=== PATIENT | female | born 1990 | race Caucasian/White ===

== ENCOUNTER 2018-08-20 16:34 | Inpatient (IN) ==
[2018-08-20] MEDS ORDERED: RINGER'S SOLUTION,LACTATED 1,000 ML IV PRN (18:08)
[2018-08-20] MEDS ORDERED: OXYTOCIN/DEXTROSE 5%-WATER 30 UNITS/500 ML BAG IV ONE (18:08)
[2018-08-20] MEDS ORDERED: ALBUTEROL SULFATE 200 PUFF INHALER IH PRN (19:26)
--- NOTE | 2018-08-20 19:26 | HP ---
Chief Complaint - Chief Complaint Date of Service: 08/20/18 Time of Service: 19:16 Chief Complaint: induction of labor for post dates History of Present Illness: 28 yo at 40 1/7 weeks presents to L&D for induction of labor. This complicated by asthma. Rh positive Rubella immune GBS negative Medical History (Last Reviewed 08/20/18 @ 19:22 by Hudson Mason DO) Asthma Onset Date: 1991 No hospitalizations. Daily Pulmicort. Pt has a rescue inhaler- can't remember the last time she had to use it. 01/15/18 jirn Hx of wisdom tooth extraction Onset Date: Unknown Upper 2 Family History: Family History (Last Reviewed 08/20/18 @ 19:22 by Hudson Mason DO) Father Rheumatoid arthritis Mother Congenital omphalocele Grandfather Asthma Grandmother Thyroid disease Maternal Grandfather Myocardial infarction, Onset Age: 32 Paternal Social History: Preferred Language Slovenian Smoking Status Never smoker (Last Updated 08/20/18 @ 16:03 by Hudson Mason DO) No Social History Section defined Review Of Systems (GEN) - Review of Systems Generalized/Overall Review: Present: No Symptoms Reported EENTM: Present: No Symptoms Reported Respiratory: Present: No Symptoms Reported Cardiac: Present: No Symptoms Reported Abdominal: Present: Other - mild contractions Genitourinary: Present: No Symptoms Reported Musculoskeletal: Present: No Symptoms Reported Neurological: Present: No Symptoms Reported Skin: Present: No Symptoms Reported Endocrine: Present: No Symptoms Reported Allergies/Adverse Reactions: Allergies Allergy/AdvReac Type Severity Reaction Status Date / Time animal dander Allergy wheezing Verified 08/20/18 18:23 No Known Drug Allergies Allergy Verified 08/20/18 18:23 Home Medications: HOME MEDICATIONS albuterol sulfate HFA 90 mcg/actuation aerosol inhaler 2 puff IH Q6H PRN 01/15/18 [Last Taken Unknown] budesonide 90 mcg/actuation breath activated powder inhaler 1 inh IH Q12H 01/15/18 [Last Taken 08/20/18] cetirizine 10 mg capsule 10 mg PO DAILY 01/15/18 [Last Taken 08/20/18] vitamin,calcium,tpdakvcb-wvbm-epxex acid tablet 1 tab PO DAILY 01/15/18 [Last Taken 08/20/18] calcium carbonate 600 mg calcium (1,500 mg) tablet 600 mg PO DAILY tab 02/12/18 [Last Taken Unknown] Exam - Exam Constitutional: Present: Alert, Oriented x3, Cooperative, No distress ENT Exam: Present: hearing grossly normal Breasts: Present: Exam deferred Respiratory: Present: lungs clear, no respiratory distress Cardiovascular/Chest: Present: normal peripheral pulses, regular rate, rhythm, no edema Abdomen: Present: soft, nontender, nondistended, no rebound tenderness, other - gravid /Rectal: Present: Other - cervix 3/60/-3 Extremity: Present: no pedal edema, no calf tenderness Skin Exam: Present: normal color, warm/dry, no cyanosis Neurologic: Present: alert, normal mood/affect, oriented x 3 Appearance: Present: appropriate appearance, appropriate insight Eye contact: Present: cooperative, good eye contact Thoughts: Present: normal thought pattern Diagnostic Studies: NST reactive. FHT 125 bpm. Contractions q 5-6 min Assessment/Plan - Assessment/Plan (1) Post-dates Assessment: Admit for pitocin induction of labor. Epidural PRN. Problem: Acute Qualifiers: Post-term type: 40-42 weeks gestation Qualified Code(s): O48.0 - Post-term (2) Asthma Problem: Acute Qualifiers: Asthma severity: moderate Asthma complication type: uncomplicated
[2018-08-20 19:55] LABS: Cocaine Ur Negative (NEGATIVE); Urine Barbiturate Negative (NEGATIVE); Urine Benzodiazepines Negative (NEGATIVE); Urine Opiates Negative (NEGATIVE); Urine PCP Negative (NEGATIVE); Urine THC Negative (NEGATIVE)
[2018-08-20] MEDS: BUDESONIDE IH SCH (20:50)
[2018-08-20] MEDS ORDERED: CALCIUM CARBONATE 500 MG TAB.CHEW PO PRN (23:05)
[2018-08-21] MEDS: RINGER'S SOLUTION,LACTATED 1,000 ML IV ONE ×2 (03:55→08:23)
[2018-08-21] MEDS ORDERED: BUPIVACAINE HCL/0.9 % NACL/PF 250 ML EP PRN ×2 (03:58→07:00)
[2018-08-21] MEDS ORDERED: ONDANSETRON HCL/PF 2 MG/ML VIAL IV PRN (03:58)
[2018-08-21] MEDS ORDERED: NALOXONE HCL 1 MG/1 ML SYRG IV PRN ×2 (03:58→07:00)
[2018-08-21] MEDS ORDERED: ONDANSETRON 4 MG TAB.RAPDIS PO PRN (03:59)
[2018-08-21] MEDS ORDERED: BUPIVACAINE HCL/PF 30 ML VIAL EP SCH (04:00)
[2018-08-21] MEDS ORDERED: BUTORPHANOL TARTRATE 2 MG/ML VIAL IV PRN (04:16)
[2018-08-21] MEDS ORDERED: ALBUTEROL SULFATE 2.5 MG/0.5 ML VIAL.NEB IH PRN (06:20)
[2018-08-21] MEDS ORDERED: fentaNYL CITRATE/PF 50 MCG/ML AMPUL IT SCH (07:00)
--- NOTE | 2018-08-21 07:02 | ANES ---
Anesthesia Pre Procedure Eval Vitals/Labs: Last Vital Signs Temp 36.8 C 08/21/18 04:06 Pulse 94 08/21/18 04:06 Resp 18 08/21/18 04:06 BP 127/71 08/21/18 04:06 Pulse Ox 99 08/21/18 04:06 HOME MEDICATIONS albuterol sulfate HFA 90 mcg/actuation aerosol inhaler 2 puff IH Q6H PRN 01/15/18 [Last Taken Unknown] budesonide 90 mcg/actuation breath activated powder inhaler 1 inh IH Q12H 01/15/18 [Last Taken 08/20/18] cetirizine 10 mg capsule 10 mg PO DAILY 01/15/18 [Last Taken 08/20/18] vitamin,calcium,hvuiwpxw-lsfo-nruhi acid tablet 1 tab PO DAILY 01/15/18 [Last Taken 08/20/18] calcium carbonate 600 mg calcium (1,500 mg) tablet 600 mg PO DAILY tab 02/12/18 [Last Taken Unknown] Allergies/Adverse Reactions: Allergies Allergy/AdvReac Type Severity Reaction Status Date / Time animal dander Allergy wheezing Verified 08/20/18 18:23 No Known Drug Allergies Allergy Verified 08/20/18 18:23 - Planned Procedure Planned Procedure: MEDICAL INDUCTION FOR POST DATES Medication List Reviewed:: Yes Allergies Verified: Yes Medical History (Last Reviewed 08/21/18 @ 07:01 by Matteo Rebollar CRNA) Asthma Onset Date: 1991 No hospitalizations. Daily Pulmicort. Pt has a rescue inhaler- can't remember the last time she had to use it. 01/15/18 jirn Hx of wisdom tooth extraction Onset Date: Upper 2 Family History (Last Reviewed 08/21/18 @ 07:01 by Matteo Rebollar CRNA) Father Rheumatoid arthritis Mother Congenital omphalocele Grandfather Asthma Grandmother Thyroid disease Maternal Grandfather Myocardial infarction, Onset Age: 32 Paternal - Family Anesthesia History Family History:: no untoward family reactions to anesthesia, no familial bleeding tendencies, no family history of clotting disorders, no family history of premature - Airway/Neck/Teeth Within Normal Limits:: Yes Teeth Condition: intact Neck Exam: full range of motion Mallampatti Score: 2 Thyromental (T-M) distance: > 6 cm Mandibulo Hyoid distance: > 3 cm - Respiratory Respiratory History: asthma Respiratory Physical: lungs clear Sleep Apnea currently treated: No Sleep Apnea by current assessment: No - Cardiovascular Tolerate Activity: Fair Heart Sounds: S1 & S2, Regular - Anesthesia Assessment and Plan ASA Class: PS, II, E Anesthesia Type Plan: Epidural - CSE for labor analgesia
[2018-08-21] MEDS ORDERED: LIDOCAINE HCL/EPINEPHRINE 20 ML VIAL ONE (07:09)
[2018-08-21] MEDS ORDERED: fentaNYL CITRATE/PF 50 MCG/ML AMPUL ONE (07:10)
[2018-08-21] MEDS: ONDANSETRON HCL/PF 2 MG/ML VIAL IV PRN ×2 (07:15→15:11)
--- NOTE | 2018-08-21 07:24 | ANES ---
Post Anesthesia Discharge - Transfer of Care Transfer of Care handoff given to nurse: Yes - Discharge from PACU Discharge from PACU when meets criteria: Yes - Comfortable post CSE
--- NOTE | 2018-08-21 07:25 | ANES ---
Anesthesia Procedure Note Procedure Note: ANESTHESIA PROCEDURE NOTE Date of Procedure: 08/21/2018 Time of procedure: 7:05 AM. Performed by: Matteo Rebollar CRNA, MSN Mother Baby Rn: Diane Leong RN. Preprocedure diagnosis: Active labor, labor pain. Post procedure diagnosis: Same. Procedure:Epidural for labor analgesia L3 4. Indications: Labor pain. Findings: See below. Details of the procedure: The patient was placed on the side of the bed in sitting positionand prepped with DuraPrep then draped in a sterile fashion. Lidocaine 1% was infiltrated to the skin and subcutaneous tissues at the level of the L3 4 interspace. An 18-gauge Touhy needle was used to approach the epidural space with loss of resistance technique. Once loss of resistance was achieved a 27-gauge spinal needle was passed through the epidural needle and CSF was contacted. After CSF returned, 20 mcg of fentanyl was injected in the spinal needle was removed the epidural catheter was then threaded approximately 4 cm in the epidural needle was removed. The catheter was taped in place and after careful aspiration 3 mL of 2% lidocaine with 1-200,000 epinephrine was injected without change in maternal heart rate or sensorium. . EBL: Minimal. Fluids: N/A. Specimen: N/A. Post procedure condition: The patient tolerated the procedure well with good Relief. No complications were noted. Thank you for this consultation. Matteo Rebollar CRNA, MSN
--- NOTE | 2018-08-21 07:41 | ANES ---
Post Anesthesia Assessment - Vital Signs Vitals: Last Vital Signs Temp 36.8 C 08/21/18 04:06 Pulse 94 08/21/18 04:06 Resp 18 08/21/18 04:06 BP 127/71 08/21/18 04:06 Pulse Ox 99 08/21/18 04:06 Airway Patency: Normal - Mental Status Level Of Consciousness: Awake, Alert, Appropriate - Pain Level Pain Score: 0 - N/V Assessment Nausea/Vomiting Presence: None Dehydration:: No
[2018-08-21] MEDS ORDERED: CALCIUM CARBONATE/VITAMIN D3 1 TAB TABLET PO SCH (09:00)
[2018-08-21] MEDS ORDERED: PRENATAL VITS96/IRON FUM/FOLIC 1 TAB TABLET PO SCH (09:00)
[2018-08-21] MEDS ORDERED: LORATADINE 10 MG TABLET PO SCH (09:00)
--- NOTE | 2018-08-21 10:17 | PN ---
Progess Note - Interim Date: 08/21/18 Time: 10:13 Narrative: 08/21/18 10:13 Patient comfortable with epidural Vital signs stable. Pitocin at 9 mu/min. FHT: 120 baseline, reassuring Contractions q 3 min Cervix: 6/70/-3, AROM-clear at 0920 Impression: Intrauterine at 40-2/7 weeks, induction of labor with slow progress. Plan: IUPC placed. Titrate Pitocin to keep adequate contractions. Reassess in 2 hours
--- NOTE | 2018-08-21 12:52 | PN ---
Progess Note - Interim Date: 08/21/18 Time: 12:50 Narrative: 08/21/18 12:50 Patient comfortable with epidural Vital signs stable. Pitocin at 9 mu/min. FHT: 120 baseline, reassuring Contractions q 2-3 min Cervix: 8/80/-1 Impression: Intrauterine at 40 2/7 weeks, induction of labor pr ogressing well Plan: Anticipate normal spontaneous vaginal delivery within the next 2 hours. I will be off call from this point until 8:00. I have checked out with Dr. Rodas who will be covering until [address] Zafar from 5 to 8 PM
[2018-08-21] MEDS ORDERED: MISOPROSTOL 200 MCG TABLET RC ONE (18:55)
[2018-08-21] MEDS ORDERED: oxyCODONE HCL/ACETAMINOPHEN 1 TAB TABLET PO PRN ×2 (19:03)
[2018-08-21] MEDS ORDERED: GLYCERIN/WITCH HAZEL LEAF 40 APPL BOX TP PRN (19:03)
[2018-08-21] MEDS ORDERED: BENZOCAINE/MENTHOL 81 SPRAY CAN TP PRN (19:03)
[2018-08-21] MEDS ORDERED: SENNOSIDES 8.6 MG TABLET PO PRN (19:03)
[2018-08-21] MEDS ORDERED: BISACODYL 10 MG SUPP.RECT RC PRN (19:03)
[2018-08-21] MEDS ORDERED: OXYTOCIN/DEXTROSE 5%-WATER 30 UNITS/500 ML BAG IV ONE (19:03)
[2018-08-21] MEDS ORDERED: HYDROCORTISONE 30 APPL TUBE TP PRN (19:03)
--- NOTE | 2018-08-21 19:12 | OR ---
Operative Report - Dictated Report Narrative: Date of delivery: 08/21/2018 Time of delivery: 1843 Gender: male weight: 3320 grams APGARS 9/9 Spontaneous Vaginal Delivery: The patient is a 28 yo G1 @ 40w 2d who presented to labor and delivery for a medical induction of labor due to postdates. She slowly progressed to complete dilation. The baby delivered in the YAMILET position. No nuchal cord was noted, the anterior and posterior shoulder delivered without difficulty, atraumatically. The baby was placed on the maternal abdomen, dried and stimulated and immediate cry was noted. The placenta was delivered by expression and appeared intact. Left vaginal/labial 1st degree laceration was repaired with 3-0 vicryl. Uterus was boggy and cytotec 1000mcgs was placed rectally, fundal massage, and clearing the lower uterine segments of clots then minimized the bleeding. EBL: 300 mL Complications: none Specimen: none History for MU Definition: * The number of deliveries resulting in a live the patient experienced prior to current hospitalization * The previous delivery of live twins or any live multiple gestation is considered one live event. *If primagravida or nulliparous is documented select zero for the number of previous live births. Live Events: 0
[2018-08-21] MEDS: DOCUSATE SODIUM 100 MG CAPSULE PO SCH (22:02)
[2018-08-22] MEDS: IBUPROFEN 800 MG TABLET PO PRN ×3 (05:09→21:24)
[2018-08-22] MEDS: BUDESONIDE IH SCH (06:43)
[2018-08-22] MEDS: DOCUSATE SODIUM 100 MG CAPSULE PO SCH ×2 (09:55→21:24)
--- NOTE | 2018-08-22 11:13 | PN ---
Subjective - Date and Time Seen Date: 08/22/18 Time: 11:12 Objective - Vitals Vitals: Last Vital Signs Temp 37.3 C 08/22/18 07:30 Pulse 93 08/22/18 07:30 Resp 20 08/22/18 07:30 BP 118/62 08/22/18 07:30 Pulse Ox 98 08/22/18 07:30 Patient denies complaints. No signs or symptoms of hypovolemia Lochia wnl Abdomen - soft, nontender Uterus - firm, at umbilicus - 1 No calf tenderness Impression: day #1 - s/p spontaneous vaginal delivery. Uterine atony responded to Cytotec and uterine massage-stable Plan: Continue routine care Cauti Physician Documentation - Urinary Catheter Management Urethral (Ni) Date of Insertion: 08/21/18 Time of Insertion: 10:34 Date of Removal: 08/21/18 Time of Removal: 18:30 Assessment/Plan - Problems/Diagnosis (1) Post-dates Problem: Acute Qualifiers: Post-term type: 40-42 weeks gestation Qualified Code(s): O48.0 - Post-term (2) Asthma Problem: Acute Qualifiers: Asthma severity: moderate Asthma complication type: uncomplicated
[2018-08-23] MEDS: IBUPROFEN 800 MG TABLET PO PRN ×3 (04:27→20:55)
[2018-08-23] MEDS: DOCUSATE SODIUM 100 MG CAPSULE PO SCH ×2 (08:18→20:51)
--- NOTE | 2018-08-23 09:38 | PN ---
Subjective - Date and Time Seen Date: 08/23/18 Time: 09:37 Objective - Vitals Vitals: Last Vital Signs Temp 36.3 C 08/23/18 07:00 Pulse 74 08/23/18 07:00 Resp 18 08/23/18 07:00 BP 124/79 08/23/18 07:00 Pulse Ox 98 08/23/18 07:00 Patient denies complaints. Lochia wnl Abdomen - soft, nontender Uterus - firm, at umbilicus - 2 No calf tenderness Impression: day #2 - s/p spontaneous vaginal delivery. Baby on IV antibiotics due to elevated CRP and bilirubin Plan: Routine discharge instructions. We'll have mother board for baby Cauti Physician Documentation - Urinary Catheter Management Urethral (Ni) Date of Insertion: 08/21/18 Time of Insertion: 10:34 Date of Removal: 08/21/18 Time of Removal: 18:30 Assessment/Plan - Problems/Diagnosis (1) Post-dates Problem: Acute Qualifiers: Post-term type: 40-42 weeks gestation Qualified Code(s): O48.0 - Post-term (2) Asthma Problem: Acute Qualifiers: Asthma severity: moderate Asthma complication type: uncomplicated
[2018-08-23 20:23] VITALS: BP 125/71
== END 2018-08-23 23:50 | disposition home or self-care (01) | DRG 806 ==
LOC: OB 18:00 → MS 08-22 05:27
PROVIDERS: ADMIT Obstetrics & Gynecology; ATTEND Obstetrics & Gynecology
CPT/HCPCS: 59025; 80307; J2405